=== PATIENT | female | born 1940 | race Caucasian/White ===

== ENCOUNTER 2024-02-14 14:11 | Outpatient (CLI) | payer MEDICARE | END 2024-02-14 14:12 | disposition home or self-care (01) | LOC: CSHCP 14:11 | PROVIDERS: ATTEND Internal Medicine | DX: J67.9 Hypersensitivity pneumonitis due to unspecified organic dust (principal) | CPT/HCPCS: 94060; 94664; 94726; 94729; 94760 ==